=== PATIENT | male | born 1995 | race Caucasian/White ===

== ENCOUNTER 2019-03-09 18:11 | Emergency (ER) | payer OTHER ==
[~2019-03-09] VITALS: Ht 182.9 cm; Wt 117.9 kg
== END 2019-03-09 22:08 | disposition home or self-care (01) ==
LOC: ER 18:11
DX: B34.8 Other viral infections of unspecified site (principal); M25.542 Pain in joints of left hand; M25.541 Pain in joints of right hand; M79.672 Pain in left foot; M79.671 Pain in right foot; M54.89 Other dorsalgia